=== PATIENT | female | born 1980 ===

== ENCOUNTER 2024-03-16 08:30 | Inpatient (IN) | payer OTHER ==
[~2024-03-16] VITALS: Ht 154.9 cm; Wt 59.9 kg
[2024-03-16 10:38] VITALS: BP 115/73
[2024-03-16 11:00] LABS: HEMATOCRIT 37.1 % (36.0-45.00); MEAN CELL VOLUME 85.1 fL (80.00-100.00); MEAN CORPUSCULAR HEMOGLOBIN 29.9 pg (27.00-32.0); MEAN CORPUSCULAR HGB CONC 35.1 g/dl (32.0-36.0); PLATELET COUNT 243 K/uL (150-450); RED BLOOD COUNT 4.35 M/uL (4.00-6.00); RED CELL DISTRIBUTION WIDTH 13.2 % (11.5-14.5)
[2024-03-16 11:20] LABS: PH,URINE 7.5 (5.0-8.0); URINE APPEARANCE Clear; URINE BILIRRUBIN Negative (NEGATIVE); URINE BLOOD Negative; URINE COLOR Yellow; URINE GLUCOSE Negative (NEGATIVE); URINE KETONE Negative (NEGATIVE); URINE LEUKOCYTE Negative; URINE NITRATE Negative; URINE PROTEIN Negative (NEGATIVE); URINE UROBILINOGEN 0.2 E.U./dl
[2024-03-16 11:25] LABS: PROTHROMBIN TIME 10.9 SECONDS (9.0-11.5)
[2024-03-16 11:41] LABS: ALBUMIN 3.9 gm/dL (3.4-5.0); BILIRUBIN TOTAL 0.86 mg/dL (0.3-1.2); CALCIUM 9.2 mg/dL (8.5-10.1); CREATININE SERUM 0.65 mg/dL (0.55-1.02); GFR 98.57; GLOBULINA 3.9 G/DL (2.4-3.5); POTASSIUM 4.05 mEq/L (3.5-5.1); TOTAL PROTEIN 7.8 gm/dL (6.4-8.2)
[2024-03-16 12:00] LABS: URINE BACTERIA 20.1 uL (0.0-1933); URINE RBC 3.2 uL (0.0-20.8); URINE WBC 1.9 uL (0.0-23.2)
[2024-03-23] MEDS ORDERED: POVIDONE-IODINE SCRUB 118 ML BOTT TOP ONE (14:30)
[2024-03-23] MEDS ORDERED: CEFAZOLIN SODIUM 1,000 MG VIAL IV ONE (14:30)
[2024-03-23] MEDS ORDERED: MEPERIDINE HCL/PF 50 MG/ML VIAL IV SCH (16:00)
[2024-03-23] MEDS ORDERED: PROMETHAZINE HCL 25 MG/ML AMPUL IV SCH (16:00)
[2024-03-23] MEDS ORDERED: MORPHINE SULFATE 4 MG/ML VIAL IV ONE ×2 (16:15→17:20)
[2024-03-23] MEDS ORDERED: HEMOSTATIC MATRIX 1 KIT KIT TOP ONE (16:30)
[2024-03-23] MEDS ORDERED: SUGAMMADEX SODIUM 200 MG/2 ML VIAL IV ONE (16:30)
[2024-03-23 21:00] LABS: HEMATOCRIT 32.8 % (36.0-45.00); HEMOGLOBIN 11.3 g/dL (12.0-15.00); MEAN CELL VOLUME 84.1 fL (80.00-100.00); MEAN CORPUSCULAR HEMOGLOBIN 29.1 pg (27.00-32.0); MEAN CORPUSCULAR HGB CONC 34.5 g/dl (32.0-36.0); PLATELET COUNT 184 K/uL (150-450); RED CELL DISTRIBUTION WIDTH 12.9 % (11.5-14.5)
[2024-03-23 22:20] VITALS: BP 115/73
[2024-03-24] VITALS: BP 108/61
[2024-03-24] MEDS ORDERED: IBUprofen 800 MG TABLET PO SCH (02:00)
[2024-03-24] MEDS ORDERED: SIMETHICONE 125 MG CAPSULE PO SCH (05:00)
[2024-03-24] MEDS ORDERED: GABAPENTIN 300 MG CAPSULE PO SCH (05:00)
[2024-03-24 06:17] LABS: HEMATOCRIT 29.5 % (36.0-45.00); HEMOGLOBIN 10.4 g/dL (12.0-15.00); MEAN CELL VOLUME 84.8 fL (80.00-100.00); MEAN CORPUSCULAR HEMOGLOBIN 29.9 pg (27.00-32.0); MEAN CORPUSCULAR HGB CONC 35.2 g/dl (32.0-36.0); PLATELET COUNT 177 K/uL (150-450); RED BLOOD COUNT 3.48 M/uL (4.00-6.00)
[2024-03-24 08:24] VITALS: BP 96/58
[2024-03-24 13:08] VITALS: BP 102/55
[2024-03-24 14:34] LABS: HEMATOCRIT 31.6 % (36.0-45.00); MEAN CELL VOLUME 86.8 fL (80.00-100.00); MEAN CORPUSCULAR HEMOGLOBIN 30.1 pg (27.00-32.0); MEAN CORPUSCULAR HGB CONC 34.7 g/dl (32.0-36.0); PLATELET COUNT 191 K/uL (150-450); RED BLOOD COUNT 3.64 M/uL (4.00-6.00); RED CELL DISTRIBUTION WIDTH 13.2 % (11.5-14.5)
[2024-03-24 17:02] VITALS: BP 90/60
[2024-03-24 21:47] VITALS: BP 99/65
[2024-03-25] VITALS: BP 84/54
[2024-03-25] MEDS ORDERED: GABAPENTIN300 MG PO (07:13)
[2024-03-25] MEDS ORDERED: IBUPROFEN800 MG PO (07:14)
[2024-03-25] MEDS ORDERED: SIMETHICONE125 M1 PO (07:14)
[2024-03-25] MEDS ORDERED: AMOX1TAB5 PO (07:14)
[2024-03-25 07:50] VITALS: BP 86/53
== END 2024-03-25 10:20 | disposition home or self-care (01) | DRG 743 ==
LOC: O/R 03-23 08:26 → SURH 03-23 08:30 → OB/GYN 03-23 18:32
PROVIDERS: ADMIT Obstetrics & Gynecology; ATTEND Obstetrics & Gynecology
PROC: 0UT9FZZ Resection of Uterus, Via Natural or Artificial Opening With Percutaneous Endoscopic Assistance (ICD-10-PCS; principal; 2024-03-23 10:00)
DX: D25.2 Subserosal leiomyoma of uterus (principal); N80.03 Adenomyosis of the uterus; Z20.822 Contact with and (suspected) exposure to COVID-19